=== PATIENT | male | born 1975 | race Caucasian/White ===

== ENCOUNTER 2016-09-21 08:17 | Emergency (ER) | payer BC, SELFPAY ==
--- NOTE | 2016-09-21 08:58 | ERRECORD ---
[facility] EMERGENCY RECORD HPI GENERAL (08:37 LHOD) CHIEF COMPLAINT: Patient presents for evaluation of PT HAS NO SPECIFIC COMPLAINT OTHER THAN WANTING TO SMOKE OR GET AN EGG MCMUFFIN. HISTORIAN: History provided by patient. TIME COURSE: PT BROUGHT IN BY EMS. PT HAS NO SPECIFIC COMPLAINT. I ASKED WHY HE CALLED EMS, HE REPORTS" MY MOTHER THINKS SHE IS A PSYCHIATRIST, MY FATHER IS DIFFICULT, [place] AND A WOMAN." I ASKED IF HE IS DEPRESSED OR WANTING TO HURT OR KILL HIMSELF. HE DENIES THIS. PT HAS UNUSUAL BEHAVIOR, BUT NO EVIDENCE OF BEING PSYCHOTIC OR WANTING TO HARM SELF OR OTHERS. ROS (08:41 LHOD) CONSTITUTIONAL: Historian denies fever. CARDIOVASCULAR: Historian denies chest pain. RESPIRATORY: Historian denies shortness of breath. GI: Historian denies abdominal pain, denies nausea, denies vomiting. MUSCULOSKELETAL: Historian denies back pain, denies neck pain. SKIN: Historian denies rash. NEUROLOGIC: Historian denies focal weakness, denies headache. PSYCHIATRIC: Historian denies alcohol abuse, denies anxiety, denies depression, reports emotional lability, denies hallucinations, denies homicidal ideation, denies suicidal ideation. REPORTS HE HAS USED COCAINE AND ECSTACY IN PAST, BUT NONE RECENTLY. NOTES: All systems reviewed, negative except as described above. PAST MEDICAL HISTORY MEDICAL HISTORY: No past medical history. (08:24 SFRE) MALE SURGICAL HISTORY: lithotripsy for kindey stone. (08:24 SFRE) PSYCHIATRIC HISTORY: Psychiatric history includes, Psychiatric history includes previous inpatient psychiatric admissions, Date of last admission: RELEASED 09/20/16, Facility: [facility], Psychiatric history includes previous emergency department psychiatric evaluations, Notes: bipolar. (08:24 SFRE) SOCIAL HISTORY: Patient denies alcohol use, Patient currently uses drugs, abuses marijuana, Daily drug use, Patient has no smoking history. (08:24 SFRE) FAMILY HISTORY: Family history is non-contributory to this case. (08:24 SFRE) NOTES: Nursing records reviewed. (08:44 LHOD) KNOWN ALLERGIES No Known Drug Allergies CURRENT MEDICATIONS No recorded medications &a-1R&a+25V*p+0X*w6033T*c202B*c15G*c2P*p-0X&a-25V&a+1R Name: Washington Smith : 1975 M41 MedRec: [id number] AcctNum: [id number] Prepared: SatSep 21, 2016 14:08 by Interface Page 1 of 3 pMD [facility] EMERGENCY RECORD VITAL SIGNS (08:22 SFRE) VITAL SIGNS: BP: 135/72, Pulse: 58, Resp: 18, Temp: 97.7 (Tympanic), Pain: 0, O2 sat: 99 on Room Air, Time: 09/21/2016 08:22. PHYSICAL EXAM (08:42 LHOD) CONSTITUTIONAL: Vital signs reviewed, Patient afebrile, Pulse, bradycardic, Blood pressure normal, Respiratory rate normal, Patient appears pain free, Patient alert and oriented to person, place and time. HEAD: Head exam included findings of head atraumatic. EYES: Pupils equally round and reactive to light, Extraocular muscles intact. ENT: Pharynx exam normal. NECK: Neck exam included findings of normal range of motion, Trachea midline, no meningeal signs. RESPIRATORY CHEST: Respiratory exam included findings of no respiratory distress, Breath sounds clear. CARDIOVASCULAR: Cardiovascular exam included findings of heart rate regular rate and rhythm, Heart sounds normal. ABDOMEN MALE: Abdominal exam included findings of abdomen nontender. BACK: Back exam normal. UPPER EXTREMITY: Upper extremity exam normal. LOWER EXTREMITY: Lower extremity exam normal. NEURO: Neuro exam findings include patient oriented to person, place and time, Speech normal, Gait normal, Memory normal, Cranial nerves intact, no focal motor deficits, no focal sensory deficits, no cerebellar deficits, no nystagmus. SKIN: no rash, DRAGON TATOO ON LEFT SHOULDER PT IS VERY PROUD OF. PSYCHIATRIC: Psychiatric exam included findings of patient oriented to person place and time, Normal affect, No suicidal ideations, No homicidal ideations, SOMEWHAT PRESSURED SPEECH. NO EVIDENCE OF VISUAL OR AUDITORY HALLUCINATIONS. PROBLEM LIST No recorded problems DIAGNOSIS (08:35 LHOD) FINAL: PRIMARY: EMOTIONAL LABILITY. PRESCRIPTION No recorded prescriptions DISPOSITION PATIENT: Disposition Type: Discharge, Disposition: *Discharge Home, Condition: Good. (08:35 LHOD) Patient left the department. (08:49 SFRE) Jacobson: &a-1R&a+25V*p+0X*u3896O*c202B*c15G*c2P*p-0X&a-25V&a+1R Name: Washington Smith Aman : 1975 M41 MedRec: [id number] AcctNum: [id number] Prepared: SatSep 21, 2016 14:08 by Interface Page 2 of 3 pMD [facility] EMERGENCY RECORD LHOD=MD Emily, Laurita SFRE=YUSEF Smith, Graciela &a-1R&a+25V*p+0X*[id number]*c202B*c15G*c2P*p-0X&a-25V&a+1R Name: Washington Smith Aman : 1975 M41 MedRec: [id number] AcctNum: [id number] Prepared: SatSep 21, 2016 14:08 by Interface Page 3 of 3 pMD MTDD
--- NOTE | 2016-09-21 09:04 | PICIS ---
[facility] EMERGENCY RECORD TRIAGE (08:22 SFRE) PATIENT: NAME: Washington Smith, AGE: 41, GENDER: male, : Sat1975, TIME OF GREET: SatSep 21, 2016 08:19, PREFERRED LANGUAGE: Azerbaijani, ETHNICITY: Not or , ECODE BILLING MAP: [facility], SSN: [id number], Zip Code: [address], KG WEIGHT: 44.00, PHONE: , , , PERSON ID: [id number], PCP: ZEFERINO. (08:22 SFRE) COMPLAINT: PSYCH EVAL. (08:22 SFRE) ADMISSION: URGENCY: 3 Urgent, ADMISSION SOURCE: Home, TRANSPORT: Walk-in, BED: TRIAGE. (08:22 SFRE) PAIN: No complaint of pain. (08:24 SFRE) SIRS SCORING: Heart Rate 55-109 (0), Temp range 96.8-101.1 (0), respiratory rate 12-24 (0), Mental Status altered: no (0). (08:24 SFRE) TRIAGE SCREENING: Patient denies suicidal ideation, Patient denies presence of domestic violence. (08:24 SFRE) PROVIDERS: TRIAGE NURSE: Graciela Smith RN. (08:22 SFRE) VITAL SIGNS: BP 135/72, Pulse 58, Resp 18, Temp 97.7, (Tympanic), Pain 0, O2 Sat 99, on Room Air, Time 09/21/2016 08:22. (08:22 SFRE) PREVIOUS VISIT ALLERGIES: No Known Drug Allergies. (08:22 SFRE) No Known Drug Allergies. (08:24 SFRE) KNOWN ALLERGIES No Known Drug Allergies CURRENT MEDICATIONS No recorded medications VITAL SIGNS (08:22 SFRE) VITAL SIGNS: BP: 135/72, Pulse: 58, Resp: 18, Temp: 97.7 (Tympanic), Pain: 0, O2 sat: 99 on Room Air, Time: 09/21/2016 08:22. NURSING ASSESSMENT: PSYCH/SOCIAL (08:25 SFRE) CONSTITUTIONAL: Patient arrives, via [facility], Gait steady, History obtained from patient, Patient appears comfortable, Patient cooperative, Patient alert, Oriented to person, place and time, Skin warm, Skin dry, Skin normal in color, Mucous membranes pink, Mucous membranes moist, Patient is well-groomed, Patient complains of WANTS TO GET OUT OF PARENTS HOUSE. PSYCH/SOCIAL: Psychiatric/social assessment findings include affect, flight of ideas, no complaint of visual hallucinations, no complaint of auditory hallucinations, no complaint of tactile hallucinations, no suicidal ideations, no homicidal ideations, no reported overdose. SUICIDE RISK ASSESSMENT TOOL: Suicide Risk Assessment findings: Mental State (Low risk):, feels hopeful about the future, Suicide Attempt or Suicidal Thoughts (Low risk):, no suicidal thoughts, Substance Disorder (Moderate risk):, risk of substance intoxication, abuse or dependence, Corroborative History &a-1R&a+25V*p+0X*p2931D*c202B*c15G*c2P*p-0X&a-25V&a+1R Name: Washington Smith : 1975 M41 MedRec: [id number] AcctNum: [id number] Prepared: SatSep 21, 2016 14:13 by Interface Page 1 of 5 pMD [facility] EMERGENCY RECORD (High risk):, unable to access information, Strengths and Support (Low risk):, JUST RELEASED FROM A [facility] IN [place]. SAFETY: Side rails up, Cart/Stretcher in lowest position, Call light within reach, Hospital ID band on. NURSING PROCEDURE: DISCHARGE NOTE (08:42 SFRE) DISCHARGE: Patient discharged to home, ambulating without assistance, patient walking, unaccompanied, Summary of Care printed/ provided, Patient requested and was provided an electronic copy of Discharge Instructions, Discharge instructions given to patient, Simple or moderate discharge teaching performed, by YUSEF SMILEY, F/U WITH PCP. RETURN TO ED NEEDED FOR NEW/CONCERNING OR WORSENING SYMPTOMS., Above person(s) verbalized understanding of discharge instructions and follow-up care, Notes: PATIENT REPORTS HE IS GOING TO STAY HERE UNTIL HIS GF COMES TO GET HIM. INFORMED PATIENT THAT HE WAS D/C HOME AND THAT HE COULDN'T STAY HERE. DR DIAZ INFOMRED OF STRANGE PATIENT BEHAVIOR. NOTED THAT SHE AGREED. ORDER DETAILS Order Name: CBC with Differential, Status: Canceled, Time: 08:45 09/21/2016, User: System, - Ordered for: MD Diaz Lefayne, - Entered by: YUSEF Smith, Graciela Brenda Sep 21, 2016 08:33, - Quantity: 1, Order Name: Comprehensive Metabolic Panel, Status: Canceled, Time: 08:45 09/21/2016, User: System, - Ordered for: MD Diaz Lefayne, - Entered by: YUSEF Smith, Graciela Brenda Sep 21, 2016 08:33, - Quantity: 1, Order Name: Drug Screen, Serum, Status: Canceled, Time: 08:45 09/21/2016, User: System, - Ordered for: MD Diaz Lefayne, - Entered by: YUSEF Smith, Graciela Brenda Sep 21, 2016 08:33, - Quantity: 1, Order Name: Drug Screen, Urine, Status: Canceled, Time: 08:42 09/21/2016, User: System, - Ordered for: MD Diaz Lefayne, - Entered by: YUSEF Smith, Graciela Brenda Sep 21, 2016 08:33, - Quantity: 1, Order Name: Thyroid Stimulating Hormone, Status: Canceled, Time: 08:42 09/21/2016, User: System, - Ordered for: MD Diaz Lefayne, - Entered by: YUSFE Smith, Graciela [facility] Sep 21, 2016 08:33, - Quantity: 1, Order Name: Urinalysis with Microscopic, Status: Canceled, Time: 08:42 09/21/2016, User: System, - Ordered for: MD Diaz Lefayne, &a-1R&a+25V*p+0X*h5891C*c202B*c15G*c2P*p-0X&a-25V&a+1R Name: Washington Smith : 1975 M41 MedRec: [id number] AcctNum: [id number] Prepared: SatSep 21, 2016 14:13 by Interface Page 2 of 5 pMD [facility] EMERGENCY RECORD - Entered by: YUSEF Smith Stacey - Fri Sep 21, 2016 08:33, - Quantity: 1. HPI GENERAL (08:37 LHOD) CHIEF COMPLAINT: Patient presents for evaluation of PT HAS NO SPECIFIC COMPLAINT OTHER THAN WANTING TO SMOKE OR GET AN EGG MCMUFFIN. HISTORIAN: History provided by patient. TIME COURSE: PT BROUGHT IN BY EMS. PT HAS NO SPECIFIC COMPLAINT. I ASKED WHY HE CALLED EMS, HE REPORTS" MY MOTHER THINKS SHE IS A PSYCHIATRIST, MY FATHER IS DIFFICULT, [place] WOMAN." I ASKED IF HE IS DEPRESSED OR WANTING TO HURT OR KILL HIMSELF. HE DENIES THIS. PT HAS UNUSUAL BEHAVIOR, BUT NO EVIDENCE OF BEING PSYCHOTIC OR WANTING TO HARM SELF OR OTHERS. ROS (08:41 LHOD) CONSTITUTIONAL: Historian denies fever. CARDIOVASCULAR: Historian denies chest pain. RESPIRATORY: Historian denies shortness of breath. GI: Historian denies abdominal pain, denies nausea, denies vomiting. MUSCULOSKELETAL: Historian denies back pain, denies neck pain. SKIN: Historian denies rash. NEUROLOGIC: Historian denies focal weakness, denies headache. PSYCHIATRIC: Historian denies alcohol abuse, denies anxiety, denies depression, reports emotional lability, denies hallucinations, denies homicidal ideation, denies suicidal ideation. REPORTS HE HAS USED COCAINE AND ECSTACY IN PAST, BUT NONE RECENTLY. NOTES: All systems reviewed, negative except as described above. PAST MEDICAL HISTORY MEDICAL HISTORY: No past medical history. (08:24 SFRE) MALE SURGICAL HISTORY: lithotripsy for kindey stone. (08:24 SFRE) PSYCHIATRIC HISTORY: Psychiatric history includes, Psychiatric history includes previous inpatient psychiatric admissions, Date of last admission: RELEASED 09/20/16, Facility: [facility], Psychiatric history includes previous emergency department psychiatric evaluations, Notes: bipolar. (08:24 SFRE) SOCIAL HISTORY: Patient denies alcohol use, Patient currently uses drugs, abuses marijuana, Daily drug use, Patient has no smoking history. (08:24 SFRE) FAMILY HISTORY: Family history is non-contributory to this case. (08:24 SFRE) NOTES: Nursing records reviewed. (08:44 LHOD) PHYSICAL EXAM (08:42 LHOD) CONSTITUTIONAL: Vital signs reviewed, Patient afebrile, &a-1R&a+25V*p+0X*g2080D*c202B*c15G*c2P*p-0X&a-25V&a+1R Name: Washington Smith : 1975 M41 MedRec: [id number] AcctNum: [id number] Prepared: SatSep 21, 2016 14:13 by Interface Page 3 of 5 pMD [facility] EMERGENCY RECORD Pulse, bradycardic, Blood pressure normal, Respiratory rate normal, Patient appears pain free, Patient alert and oriented to person, place and time. HEAD: Head exam included findings of head atraumatic. EYES: Pupils equally round and reactive to light, Extraocular muscles intact. ENT: Pharynx exam normal. NECK: Neck exam included findings of normal range of motion, Trachea midline, no meningeal signs. RESPIRATORY CHEST: Respiratory exam included findings of no respiratory distress, Breath sounds clear. CARDIOVASCULAR: Cardiovascular exam included findings of heart rate regular rate and rhythm, Heart sounds normal. ABDOMEN MALE: Abdominal exam included findings of abdomen nontender. BACK: Back exam normal. UPPER EXTREMITY: Upper extremity exam normal. LOWER EXTREMITY: Lower extremity exam normal. NEURO: Neuro exam findings include patient oriented to person, place and time, Speech normal, Gait normal, Memory normal, Cranial nerves intact, no focal motor deficits, no focal sensory deficits, no cerebellar deficits, no nystagmus. SKIN: no rash, DRAGON TATOO ON LEFT SHOULDER PT IS VERY PROUD OF. PSYCHIATRIC: Psychiatric exam included findings of patient oriented to person place and time, Normal affect, No suicidal ideations, No homicidal ideations, SOMEWHAT PRESSURED SPEECH. NO EVIDENCE OF VISUAL OR AUDITORY HALLUCINATIONS. EVENTS TRANSFER: Triage to Emergency Triage. (SatSep 21, 2016 08:22 SFRE) Emergency Triage to Main ED -03. (08:22 SFRE) Removed from Emergency Main ED -03. (08:49 SFRE) PROBLEM LIST No recorded problems DIAGNOSIS (08:35 LHOD) FINAL: PRIMARY: EMOTIONAL LABILITY. DISPOSITION PATIENT: Disposition Type: Discharge, Disposition: *Discharge Home, Condition: Good. (08:35 LHOD) Patient left the department. (08:49 SFRE) INSTRUCTION (08:36 LHOD) FOLLOWUP: Follow up with Primary Care Physician in 1-2 days. SPECIAL: FOLLOW UP WITH YOUR PRIMARY DOCTOR OR [facility]. &a-1R&a+25V*p+0X*f9934C*c202B*c15G*c2P*p-0X&a-25V&a+1R Name: Washington Smith : 1975 M41 MedRec: [id number] AcctNum: [id number] Prepared: SatSep 21, 2016 14:13 by Interface Page 4 of 5 pMD [facility] EMERGENCY RECORD PRESCRIPTION No recorded prescriptions IMAGING (08:46 SFRE) *DISCHARGE INSTRUCTIONS RECEIPT: Image captured from scanner. *SUPPLY CHARGE SHEET: Image captured from scanner. ADMIN (14:02 OD) DIGITAL SIGNATURE: MD Diaz Lefayne. Jacobson: LHOD=MD Diaz Lefayne SFRE=YUSEF Smith, Graciela &a-1R&a+25V*p+0X*a2472W*c202B*c15G*c2P*p-0X&a-25V&a+1R Name: Washington Smith : 1975 M41 MedRec: [id number] AcctNum: [id number] Prepared: SatSep 21, 2016 14:13 by Interface Page 5 of 5 pMD MTDD
== END 2016-09-21 08:42 | disposition home or self-care (01) ==
LOC: MADERS 08:17
DX: R45.86 Emotional lability (principal); F31.9 Bipolar disorder, unspecified; Z87.442 Personal history of urinary calculi
CPT/HCPCS: 99284

== ENCOUNTER 2017-11-04 20:54 | Emergency (ER) | payer SELFPAY ==
--- NOTE | 2017-11-04 21:40 | RAD ---
PORTABLE UPRIGHT FRONTAL CHEST RADIOGRAPH: Date: 11-04-17 Comparison: None. History: Altered mental status. FINDINGS: Cardiac silhouette is prominent suggesting magnification and/or enlargement. No pneumothorax or pleur al fluid. No focal consolidation or alveolar edema. IMPRESSION: No acute findings. POS: [facility]
[2017-11-04 21:54] LABS: Bilirubin Small (Negative); Blood, Urine Trace (Negative); Clarity Clear (Clear); Glucose, Urine (Dipstick) Negative (Negative); Leukocyte Negative (Negative); Nitrite Negative (Negative); Protein, Urine (Dipstick) 30 mg/dL (Neg-Trace); Urobilinogen 0.2 mg/dL (0.2-1.0); pH, Urine 5.5 (5.0-9.0)
[2017-11-04 21:54] LABS: %Basophils 0.9 % (0.0-1.0); %Lymphocytes 15.3 % (21.0-51.0); %Monocytes 6.1 % (0.0-10.0); %Neutrophils 75.6 % (42.0-75.0); Hemoglobin 14.7 g/dL (14.0-18.0); Mean Corpuscular HGB CONC 35.2 g/dL (32.0-36.0); Mean Corpuscular Hemoglobin 31.2 pg (27.0-31.0); Mean Corpuscular Volume 88.7 fL (80.0-94.0); Mean Platelet Volume 6.6 fL (7.4-10.4); PTT 24.8 SEC (22.9-36.1); Platelet Count 299 thou/uL (130-400); Prothrombin Time 13.6 SEC (12.0-14.7); RBC Distribution Width 11.8 % (11.5-14.5); White Blood Cell (WBC) Count 12.1 thou/uL (4.8-10.8)
[2017-11-04 21:55] LABS: #Basophils 0.1 thou/uL (0.0-0.2); #Eosinphils 0.2 thou/uL (0.0-0.7); #Lymphocytes 1.9 thou/uL (1.20-3.40); #Monocytes 0.7 thou/uL (0.11-0.59); #Neutrophils 9.1 thou/uL (1.40-6.50)
[2017-11-04 21:58] LABS: Amphetamine Not Detected (NotDetected); Barbiturates Screen Not Detected (NotDetected); Benzodiazepine Screen Detected (NotDetected); Cocaine Metabolite Screen Not Detected (NotDetected); Medtox Control Line Valid? VALID (VALID); Methadone Not Detected (NotDetected); Methamphetamine Not Detected (NotDetected); Opiate Screen Not Detected (NotDetected); Oxycodone Screen Not Detected (NotDetected); Phencyclidine (PCP) Not Detected (NotDetected); THC/Cannabinoid Screen Not Detected (NotDetected); Tricyclic Screen Not Detected (NotDetected)
[2017-11-04 22:01] LABS: Bacteria/HPF None Seen HPF (None Seen); RBC/HPF 0-3 HPF (0-3); Specific Gravity, Urine 1.032 (1.002-1.036); Squamous Epithelial 0-3 HPF (0-3); WBC/HPF 0-3 HPF (0-3)
[2017-11-04 22:04] LABS: Acetaminophen Less than 6.0 mcg/mL (10.0-30.0); Alcohol Less than 10 mg/dL (Less than 10); Magnesium 2.1 mg/dL (1.6-2.6); Salicylate Less than 8.0 mg/dL (15.0-30.0)
[2017-11-04 22:06] LABS: CKMB 3.4 ng/mL (0-6.6); Troponin I Less than 0.010 ng/mL (< 0.028)
[2017-11-04 22:07] LABS: ALT (SGPT) 26 U/L (8-55); AST (SGOT) 19 U/L (5-34); Albumin 4.3 g/dL (3.5-5.0); Alkaline Phosphatase 57 U/L (40-150); Anion Gap 16 mmol/L (10-20); BUN (Urea Nitrogen) 16 mg/dL (8.9-20.6); Bilirubin, Total 0.5 mg/dL (0.2-1.2); CK (CPK) 224 U/L (30-200); Calc. Creatinine Clearance 0 mL/min (70-130); Calcium 9.3 mg/dL (7.8-10.44); Carbon Dioxide 22 mmol/L (22-29); Chloride 108 mmol/L (98-107); Estimated GFR-MDRD Greater than 90; Globulin 1.8 g/dL (2.4-3.5); Glucose 92 mg/dL (70-105); Potassium 3.6 mmol/L (3.5-5.1); Protein, Total 6.1 g/dL (6.0-8.3); Sodium 142 mmol/L (136-145)
== END 2017-11-05 02:55 | disposition short-term general hospital (02) ==
LOC: MADERS 20:54
DX: F29 Unspecified psychosis not due to a substance or known physiological condition (principal)
CPT/HCPCS: 71045; 80053; 80306; 80307; 81001; 82550; 82553; 83735; 83880; 84443; 84484; 85025; 85610; 85730; 87086; 93005; 94760

== ENCOUNTER 2023-10-16 15:31 | Emergency (ER) | payer OTHER ==
[2023-10-16 16:51] LABS: #Basophils 0.1 thou/uL (0.0-0.2); #Eosinphils 0.1 thou/uL (0.0-0.7); #Lymphocytes 1.2 thou/uL (1.20-3.40); #Monocytes 0.5 thou/uL (0.11-0.59); %Basophils 0.8 % (0.0-1.0); %Eosinophils 0.7 % (0.0-10.0); %Lymphocytes 11.9 % (21.0-51.0); %Monocytes 5.3 % (0.0-10.0); %Neutrophils 81.2 % (42.0-75.0); Hematocrit 44.8 % (42.0-52.0); Hemoglobin 14.6 g/dL (14.0-18.0); Mean Corpuscular HGB CONC 32.7 g/dL (32.0-36.0); Mean Corpuscular Hemoglobin 28.7 pg (27.0-31.0); Mean Platelet Volume 7.7 fL (7.4-10.4); Platelet Count 249 10x3/uL (130-400); RBC Distribution Width 12.1 % (11.5-14.5); Red Blood Cell (RBC) Count 5.09 mill/uL (4.70-6.10); White Blood Cell (WBC) Count 9.8 10x3/uL (4.8-10.8)
[2023-10-16 17:01] LABS: INR-International Normal Ratio 0.9; PTT 25.1 sec (22.9-36.1); Prothrombin Time 12.8 sec (12.0-14.7)
[2023-10-16 17:09] LABS: ALT (SGPT) 42 U/L (8-55); AST (SGOT) 24 U/L (5-34); Albumin 4.4 g/dL (3.5-5.0); Alkaline Phosphatase 72 U/L (40-110); Anion Gap 13 mmol/L (10-20); BUN (Urea Nitrogen) 15 mg/dL (8.9-20.6); Bilirubin, Total 0.3 mg/dL (0.2-1.2); Calc. Creatinine Clearance 0 mL/min (70-130); Calcium 9.5 mg/dL (7.8-10.44); Carbon Dioxide 25 mmol/L (22-29); Chloride 107 mmol/L (98-107); Estimated GFR 104; Globulin 2.6 g/dL (2.4-3.5); Glucose 110 mg/dL (70-105); Potassium 3.6 mmol/L (3.5-5.1); Sodium 141 mmol/L (136-145)
[2023-10-16] MEDS ORDERED: Morphine 4 MG/ML VIAL ONE (17:14)
[2023-10-16] MEDS ORDERED: Ondansetron PF 4 MG/2 ML Vial ONE (17:14)
== END 2023-10-16 18:03 | disposition home or self-care (01) ==
LOC: MADERS 15:31
DX: S43.401A Unspecified sprain of right shoulder joint, initial encounter (principal); S13.4XXA Sprain of ligaments of cervical spine, initial encounter; S80.02XA Contusion of left knee, initial encounter; V43.52XA Car driver injured in collision with other type car in traffic accident, initial encounter; Y93.89 Activity, other specified; Y92.69 Other specified industrial and construction area as the place of occurrence of the external cause
CPT/HCPCS: 36415; 70450; 71260; 72125; 74177; 80053; 85025; 85610; 85730; 96374; 96375; J2270; J2405